=== PATIENT | female | born 1970 | race Caucasian/White ===

== ENCOUNTER → 2020-09-16 12:41 | Outpatient (BNVA) | payer OTHER, SELFPAY | PROVIDERS: PCP Internal Medicine; Visit Provider Anesthesiology | DX: M47.816 Spondylosis without myelopathy or radiculopathy, lumbar region (principal); M15.9 Polyosteoarthritis, unspecified; M81.0 Age-related osteoporosis without current pathological fracture | CPT/HCPCS: 99202 ==

== ENCOUNTER → 2020-10-21 15:45 | Outpatient (BNVA) | payer OTHER, SELFPAY | PROVIDERS: PCP Internal Medicine; Referring Provider Internal Medicine; Visit Provider Anesthesiology | DX: M47.816 Spondylosis without myelopathy or radiculopathy, lumbar region (principal); M54.5 Low back pain; M15.9 Polyosteoarthritis, unspecified; M81.0 Age-related osteoporosis without current pathological fracture | CPT/HCPCS: 99212 ==

== ENCOUNTER → 2020-11-06 10:42 | Outpatient (BNVA) | payer OTHER, SELFPAY | PROVIDERS: PCP Internal Medicine; Visit Provider Anesthesiology | DX: M47.816 Spondylosis without myelopathy or radiculopathy, lumbar region (principal); M54.5 Low back pain; M15.9 Polyosteoarthritis, unspecified; M81.0 Age-related osteoporosis without current pathological fracture | CPT/HCPCS: 99212 ==

== ENCOUNTER → 2020-12-09 09:38 | Outpatient (BNVA) | payer OTHER, SELFPAY | PROVIDERS: PCP Internal Medicine; Visit Provider Anesthesiology | DX: M47.816 Spondylosis without myelopathy or radiculopathy, lumbar region (principal); M54.5 Low back pain; M15.9 Polyosteoarthritis, unspecified; M81.0 Age-related osteoporosis without current pathological fracture; Z79.899 Other long term (current) drug therapy | CPT/HCPCS: 99212 ==